=== PATIENT | female | born 1975 | race Hispanic/Latino ===

== ENCOUNTER 2017-09-18 17:52 | Emergency (ER) | payer BC ==
[2017-09-18 18:00] VITALS: BMI 25.2
[2017-09-18] MEDS ORDERED: Sodium Chloride 0.9% 1,000 ML IV ONE (18:11)
[2017-09-18] MEDS ORDERED: Promethazine/Cod 6.25mg-10mg/5ml Syr UD PO STA (18:12)
[2017-09-18] MEDS ORDERED: Promethazine/Cod 6.25mg-10mg/5ml Syr UD ONE (18:18)
[2017-09-18 18:33] LABS: BASO % 0.3 % (0.0-2.0); EOS # 0.1 K/uL (0.0-0.7); EOS % 1.4 % (0.0-4.0); HEMOGLOBIN 13.9 g/dL (11.0-16.0); LYMPH # 2.4 K/uL (1.0-4.3); LYMPH % 47.7 % (20.0-40.0); MEAN CELL VOLUME 88.2 fL (81.0-99.0); MEAN CORPUSCULAR HEMOGLOBIN 30.1 pg (27.0-31.0); MEAN CORPUSCULAR HGB CONC 34.1 g/dL (33.0-37.0); MEAN PLATELET VOLUME 7.2 fL (7.2-11.7); MONO # 0.5 K/uL (0.0-0.8); MONO % 9.6 % (0.0-10.0); NEUT # 2.1 K/uL (1.8-7.0); NRBC % 0.1 % (0.0-2.0); RBC 4.64 Mil/uL (3.80-5.20); RED CELL DISTRIBUTION WIDTH 12.6 % (11.5-14.5); WHITE BLOOD COUNT 5.1 K/uL (4.8-10.8)
--- NOTE | 2017-09-18 18:33 | RAD ---
Date of service: 09/18/2017 HISTORY: SOB COMPARISON: No prior. TECHNIQUE: Chest PA and lateral FINDINGS: LUNGS: No active pulmonary disease. PLEURA: No significant pleural effusion identified. No pneumothorax apparent. CARDIOVASCULAR: Normal. OSSEOUS STRUCTURES: No significant abnormalities. VISUALIZED UPPER ABDOMEN: Normal. OTHER FINDINGS: Bilateral breast implantation apparent. IMPRESSION: No acute cardiopulmonary disease appreciated.
[2017-09-18 18:37] LABS: HCG,QUALITATIVE URINE NEGATIVE (NEGATIVE)
[2017-09-18 18:42] LABS: SQUAMOUS EPITHIAL 2 /hpf (0-5); URINE AMORPHOUS SEDIMENT RARE /ul (<OCC); URINE BACTERIA RARE (<OCC); URINE BILIRUBIN NEGATIVE (NEGATIVE); URINE BLOOD NEGATIVE (NEGATIVE); URINE CLARITY Hazy (Clear); URINE COLOR Yellow (YELLOW); URINE GLUCOSE (UA) NORMAL (Normal); URINE LEUKOCYTE ESTERASE NEG Leu/uL (Negative); URINE PROTEIN NEGATIVE (NEGATIVE); URINE UROBILINOGEN NORMAL mg/dL (0.2-1.0)
[2017-09-18 18:44] LABS: CALCIUM 9.5 mg/dl (8.6-10.4); GFR AFRICAN-AMERICAN > 60; GFR NON-AFRICAN AMERICAN > 60
[2017-09-18 18:45] VITALS: TEMP 99.3; O2SAT 99
--- NOTE | 2017-09-18 18:46 | C.PDOC ---
History Of Present Illness 42 year old female comes in for evaluation of cold symptoms for the past 2-3 weeks associated with nasal congestion , sore throat and dry cough. Patient reports, was seen by PMD and completed abx Levaquin with no relief. Patient reports, cough became more continuos, dry, " wasn't able to sleep last night due to dry cough". Otherwise, Patient denies high fever, chills, dizziness, malaise, drooling, neck pain, CP, palpitations, diaphoresis, abd. pain, nausea, vomiting, back pain, UTI sx, denies previous travel or known sick contact. Denies previous hx of allergy. Ambulate to Ed for evaluation, not in any apparent distress. Time Seen by Provider: 09/18/17 18:02 Chief Complaint (Nursing): Cough, Cold, Congestion History Per: Patient History/Exam Limitations: no limitations Onset/Duration Of Symptoms: Days, Gradual Current Symptoms Are (Timing): Still Present Associated Symptoms: Cough (dry), Other (nasal congestion; no palpitations, wheezing, nausea, and back pain). denies: Fever, Chills, Sore Throat Past Medical History Reviewed: Historical Data, Nursing Documentation, Vital Signs Vital Signs: Last Vital Signs Temp 99.3 F 09/18/17 18:45 Pulse 70 09/18/17 21:00 Resp 18 09/18/17 21:00 BP 122/70 09/18/17 21:00 Pulse Ox 99 09/18/17 21:05 Surgical History: Tonsillectomy Family History: States: No Known Family Hx - Social History Hx Alcohol Use: Yes Hx Substance Use: No - Immunization History Hx Tetanus Toxoid Vaccination: No Hx Influenza Vaccination: No Hx Pneumococcal Vaccination: No Review Of Systems Except As Marked, All Systems Reviewed And Found Negative. Constitutional: Negative for: Fever, Chills ENT: Positive for: Nose Congestion. Negative for: Throat Pain Cardiovascular: Negative for: Palpitations Respiratory: Positive for: Cough (dry). Negative for: Wheezing Gastrointestinal: Negative for: Nausea Musculoskeletal: Negative for: Back Pain Physical Exam - Physical Exam Appears: Well, Non-toxic, No Acute Distress, Other (occasional dry cough noted) Skin: Normal Color, Warm, Dry, No Rash, No Ecchymosis Head: Normacephalic Eye(s): bilateral: PERRL Ear(s): Bilateral: Normal Nose: No Discharge, Other (B/L nasal congestion) Oral Mucosa: Moist, No Drooling Tongue: Normal Appearing Lips: Normal Appearing Throat: Erythema (mild B/L), No Drooling Neck: Trachea Midline, No Midline Cervical Tenderness, No Paracervical Tenderness, Supple Chest: Symmetrical, No Deformity, No Tenderness Cardiovascular: Rhythm Regular, No Friction Rub, No Murmur, No JVD Respiratory: No Decreased Breath Sounds, No Accessory Muscle Use, No Rales, No Rhonchi, Wheezing (scattered Right base expiratory ) Gastrointestinal/Abdominal: Soft, No Tenderness, No Distention, No Guarding, No Rebound Back: No CVA Tenderness Extremity: Normal ROM (x4), No Tenderness, No Deformity, No Swelling Neurological/Psych: Oriented x3, Normal Speech, Normal Motor ED Course And Treatment - Laboratory Results Result Diagrams: 09/18/17 18:28 09/18/17 18:28 Lab Interpretation: Abnormal (D-DImer) Urine POC: Positive O2 Sat by Pulse Oximetry: 99 (RA) Pulse Ox Interpretation: Normal - Radiology CXR: Interpreted by Me, Viewed By Me, Read By Radiologist CXR Interpretation: Yes: No Acute Disease - CT Scan/US CTA r/p PE Other Rad Studies (CT/US): Radiology Report Reviewed CT/US Interpretation: EXAM: CT Angiography Chest With Intravenous Contrast. EXAM DATE/TIME: Exam ordered 09/18/2017 7:04 PM. CLINICAL HISTORY: 42 years old, female; Signs and symptoms; Shortness of breath; Additional info: SOB. TECHNIQUE: Axial computed tomographic angiography images of the chest with intravenous contrast using. pulmonary embolism protocol. All CT scans at this facility use at least one of these dose optimization. techniques: automated exposure control; mA and/or kV adjustment per patient size (includes targeted. exams where dose is matched to clinical indication); or iterative reconstruction. MIP reconstructed images were created and reviewed. Coronal and sagittal reformatted images were created and reviewed. CONTRAST: 100 mL of visipaque 320 administered intravenously. COMPARISON: No relevant prior studies available. FINDINGS: Pulmonary arteries: Unremarkable. No pulmonary embolism. Aorta: No acute findings. No thoracic aortic aneurysm. Lungs: 2 small (less than 3 mm) areas of pleural-based somewhat linear opacity in the left lower. lobe may represent scarring. Pleural space: Unremarkable. No significant effusion. No pneumothorax. Heart: Unremarkable. No cardiomegaly. No significant pericardial effusion. No evidence of RV. dysfunction. Bones/ joints: No acute fracture. No dislocation. Soft tissues: There are bilateral subglandular breast implants. Lymph nodes: Unremarkable. No enlarged lymph nodes. IMPRESSION: 1. No pulmonary embolism. Thank you for allowing us to participate in the care of your patient. Dictated and Authenticated by: Page Ascencio MD. 09/18/2017 8:45 PM Eastern Time ([place] & [place]) Progress Note: Impression: 42 year old male patient with gradual cold symptoms. Plans: -- D dimer. -- blood work. -- CXR. -- Codeine. -- SOLU-medrol. - - IV solution. -- UA. Pt was re-evaluated by pt's PMD in ED. Blood work review, D-DImer appeas high, CTA chest r/o PE advised. Re-eval: On re- eval, pt is afebrile, hemodynamically stable. Non-toxic. Tolerate PO well in ED. PulseOx 99% on RA. ENT: no acute findings. Uvula midline, no edema. Neck : Supple, (-) JVD. Lungs: CTA B/L, BS equal B/L. Abd: Soft, non-tender. Neurologically intact. BLood owrk review, no acute leukocytosis noted. UA- normal study. CTA chest review: Pt has clinical finidngs c/w asthmabronchitis , reactive airway ds. Pt advised. ref. to f/u with and Pulmonology in 2-3 days for re-evaluation. returnb if any worsening or new changes. Disposition Counseled Patient/Family Regarding: Studies Performed, Diagnosis, Need For Followup, Rx Given - Disposition Referrals: Casper Espinoza MD [Staff Provider] - Disposition: HOME/ ROUTINE Disposition Time: 19:58 Condition: STABLE Additional Instructions: Take medication as prescribed Follow up with PMD, Pulmonology in 2-3 days for re-evaluation. return to ED if any worsening or new changes. Prescriptions: Albuterol HFA [Ventolin HFA 90 mcg/actuation (8 g)] 1 puff IH Q6 #1 inhaler Azithromycin [Zithromax] 250 mg PO DAILY #4 tab Prednisone [Deltasone] 40 mg PO DAILY #8 tablet Promethazine/Codeine [Phenergan/Codeine Oral Syrup] 10 ml PO BID #120 ml Instructions: Asthma, Adult (DC) Forms: [facility] (Khmer) - Clinical Impression Clinical Impression: Reactive airway disease - PA / [employer] / Resident Statement MD/ has reviewed & agrees with the documentation as recorded. - Scribe Statement The provider has reviewed the documentation as recorded by the Kervin Greene Do All medical record entries made by the Scribe were at my direction and personally dictated by me. I have reviewed the chart and agree that the record accurately reflects my personal performance of the history, physical exam, medical decision making, and the department course for this patient. I have also personally directed, reviewed, and agree with the discharge instructions and disposition.
[2017-09-18 18:53] LABS: BLOOD UREA NITROGEN 8 mg/dL (7-17)
[2017-09-18] MEDS ORDERED: Albuterol 0.083% Inhal Sol (2.5 mg/3 mL) UD IH STA (19:12)
[2017-09-18] MEDS ORDERED: Iodixanol 320 MG/ML 100 ML BOTTLE IV ONE (19:18)
[2017-09-18] MEDS ORDERED: Albuterol 0.083% Inhal Sol (2.5 mg/3 mL) UD ONE (19:21)
[2017-09-18 21:14] VITALS: BP 122/70; PULSE 70; RESP 18
--- NOTE | 2017-09-19 10:25 | CT ---
Date of service: 09/18/2017 PROCEDURE: CT Chest with contrast (Pulmonary Angiogram) HISTORY: sob COMPARISON: None available. TECHNIQUE: Axial computed tomography images were obtained of the chest in the pulmonary arterial phase of enhancement. Coronal and sagittal reformatted images were created and reviewed. Intravenous contrast dose: Visipaque 320, 100 cc Radiation dose: Total exam DLP = 185.34 mGy-cm. This CT exam was performed using one or more of the following dose reduction techniques: Automated exposure control, adjustment of the mA and/or kV according to patient size, and/or use of iterative reconstruction technique. FINDINGS: PULMONARY ARTERIES: Unremarkable. No pulmonary embolism. AORTA: No acute findings. No thoracic aortic aneurysm. LUNGS: Trace biapical fibrosis noted. 2 small pleural placed posterior to the left lower lobe 3 mm greatest dimension seen in images 64 and 74 series 4 with the left lung otherwise clear. Central airways are clear throughout. PLEURAL SPACES: Unremarkable. No effusion or pneumothorax. HEART: Unremarkable. No cardiomegaly. No significant pericardial effusion. LYMPH NODES: No lymphadenopathy. BONES, CHEST WALL: Unremarkable. No fracture or destructive lesion Prior bilateral subglandular breast implantation identified. OTHER FINDINGS: Unremarkable. IMPRESSION: 1. No CT evidence of pulmonary embolus. 2. Trace biapical fibrosis. Additional potential fibrosis left lower lobe and 2 small foci which appear pleural-based. Consider follow-up chest CT in 1 year via low-dose chest CT protocol to demonstrate stability or resolution of these findings at the left lower lobe.
== END 2017-09-18 21:14 | disposition home or self-care (01) ==
LOC: C.ER 17:52
DX: J45.909 Unspecified asthma, uncomplicated (principal)
CPT/HCPCS: 71046; 71275; 80048; 81001; 84703; 85025; 85378; 94640; 96361; 96374; 99284; J2930; J7030; Q9967